=== PATIENT | male | born 1940 | race Two or more races ===

== ENCOUNTER 2019-01-20 12:08 | Emergency (ER) | payer OTHER ==
[~2019-01-20] VITALS: Ht 180.3 cm; Wt 91.6 kg
[~2019-01-20 12:08] MED LIST: ASPI-496 PO; DILT300C42 PO; LISI40TA PO; LOVA20TA2 PO; TAMS-11 PO
[2019-01-20 12:43] VITALS: BP 165/80
[2019-01-20] MEDS ORDERED: FAMOTIDINE 20 MG TABLET ONE (12:51)
[2019-01-20] MEDS ORDERED: DIPHENHYDRAMINE 50 MG CAPSULE ONE (12:51)
[2019-01-20] MEDS ORDERED: EPINEPHRINE 1 MG/ML, 1ML ONE (12:57)
[2019-01-20] MEDS ORDERED: HYDROcodone/APAP 5/325 TABLET PO ONE (13:00)
[2019-01-20] MEDS ORDERED: HYDROcodone/APAP 5/325 TABLET ONE (13:35)
--- NOTE | 2019-01-20 14:22 | NUR ---
pt declines norco offered by RN. pt given dc instructions and script. sling placed, cms intact s/p splint. pt a&o, resps even and unlabored, nadn at dc. pt amb to dc desk with steady gait. all questions answered.
== END 2019-01-20 14:26 ==
LOC: ED 14:11
DX: S46.211A Strain of muscle, fascia and tendon of other parts of biceps, right arm, initial encounter (principal); I10 Essential (primary) hypertension; E78.5 Hyperlipidemia, unspecified; Z85.46 Personal history of malignant neoplasm of prostate; X50.1XXA Overexertion from prolonged static or awkward postures, initial encounter; Y93.89 Activity, other specified; Y92.69 Other specified industrial and construction area as the place of occurrence of the external cause; Y99.8 Other external cause status
CPT/HCPCS: 99283